=== PATIENT | male | born 1955 | race Caucasian/White ===

== ENCOUNTER 2022-01-11 19:59 | Inpatient (IN) | payer MEDICARE, OTHER, SELFPAY ==
[2022-01-11 20:23] VITALS: BP 189/94; PULSE 64; RESP 16; TEMP 36.9; O2SAT 97; BMI 40.4
[2022-01-11 20:55] LABS: Appearance Urine UA CLEAR; Bilirubin Urine UA NEGATIVE (NEGATIVE); Color Urine UA YELLOW; Glucose Urine UA TRACE g/dL (Negative); Ketones Urine UA NEGATIVE (NEGATIVE); Leukocyte Esterase Urine UA TRACE (NEGATIVE); Nitrite Urine UA NEGATIVE (Negative); Occult Blood Urine UA TRACE-LYSED (Negative); Protein Urine UA TRACE (Negative); Urobilinogen Urine UA 0.2 E.U./dL (0.2)
[2022-01-11 20:57] LABS: Add Manual Diff / Slide Review NO; Basophils Absolute Auto 0 /uL (0-100); Basophils Percent Auto 0.4 % (0-2); Eosinophils Absolute Auto 200 /uL (0-450); Hemoglobin 12.9 g/dL (13.5-17.5); Lymphocytes Absolute Auto 1300 /uL (1100-4500); Lymphocytes Percent Auto 13.8 % (25-40); Mean Corpuscular HGB Conc 34.8 % (30-36); Mean Corpuscular Hemoglobin 26.3 PG (26-34); Mean Corpuscular Volume 75.5 fL (80-100); Monocytes Absolute Auto 600 /uL (0-900); Monocytes Percent Auto 6.6 % (3-14); Neutrophils Absolute Auto 7300 /uL (1500-7000); Neutrophils Percent Auto 77.2 % (50-75); Platelet Count 187 X10^3/uL (150-400); Red Cell Distribution Width 14.1 % (11.6-14.8); White Blood Cell Count 9.5 X10^3/uL (4.5-11.0)
[2022-01-11 21:04] LABS: INR 1.2 (0.9-1.3); Prothrombin Time 13.1 SECONDS (10.1-12.7)
[2022-01-11 21:06] LABS: RBC Urine 0-1/HPF (0-5/HPF); Renal Epithelial Cells Urine 0-1/HPF (0-1/HPF); Squamous Epithelial Cell Urine 1-5 /HPF (0-5/HPF); WBC Urine 1-5/HPF (0-5/HPF)
[2022-01-11 21:07] LABS: Bacteria Urine Occasional (0-1); Granular Casts Urine 0-1/LPF; Hyaline Casts Urine 0-1/LPF
[2022-01-11 21:08] LABS: Culture Indicated Urine Specimen Cultured
[2022-01-11 21:17] LABS: Alanine Aminotransferase 9 IU/L (<50); Albumin 4.5 g/dL (3.5-5.0); Albumin Globulin Ratio 1.4 (1.0-2.8); Alkaline Phosphatase 60 U/L (38-126); Aspartate Aminotransferase 15 IU/L (17-59); BUN Creatinine Ratio 23.4 (6-22); Bilirubin Total 0.6 mg/dL (0.2-1.3); Blood Urea Nitrogen 85 mg/dL (9-20); Calcium 9.2 mg/dL (8.4-10.2); Carbon Dioxide 28 mmol/L (22-32); Chloride 96 mmol/L (98-107); Estimated Glomerular Filt Rate 18 mL/min (>60); Globulin 3.2 g/dL (1.7-4.1); Glucose 265 mg/dL (80-110); HEMOLYSIS < 15 (0-50); Potassium 3.3 mmol/L (3.4-5.1); Sodium 138 mmol/L (137-145); Total Protein 7.7 g/dL (6.3-8.2)
[2022-01-11 21:26] VITALS: PULSE 60; O2SAT 98
--- NOTE | 2022-01-11 21:26 | DI.CT.S_ITS ---
PROCEDURE: CT KIDNEY URETER BLADDER (KUB) INDICATIONS: renal failure TECHNIQUE: Axial sections were acquired from the lung bases to the pubic symphysis. Coronal and sagittal reformats were performed. For radiation dose reduction, the following was used: automated exposure control, adjustment of mA and/or kV according to patient size. COMPARISON: None. FINDINGS: Image quality: Excellent. Lung bases: There is minimal atelectasis. Heart: Heart is normal in size. There is a minimal pericardial effusion inferiorly. URINARY: Right Kidney and Ureter: No hydronephrosis. There are 3-4 nonobstructing right renal stones, with the largest stone located in the superior pole and measuring up to 0.4 cm. There is a smaller adjacent stone measuring approximately 0.2 cm. There is mild nonspecific perinephric stranding. No hydroureter. Left Kidney and Ureter: There are 2 nonobstructing stones within the left kidney, with the largest stone measuring up to 0.5 cm in the inferior pole. There is an exophytic cyst anteriorly. There is mild nonspecific perinephric stranding. No hydronephrosis. No hydroureter. Bladder: Normal wall thickness. No stones. ABDOMEN: Liver: Noncontrast evaluation of the liver demonstrates no discrete mass. Gallbladder: Within normal limits without calcified gallstones. Biliary ducts: No biliary ductal dilatation. Pancreas: Unremarkable. Spleen: The spleen is enlarged, measuring up to 15.9 cm. There is a hypodense lesion within the spleen superiorly measuring up to 1.1 cm which is indeterminate. Adrenal Glands: No adrenal nodules. Stomach and Bowel: Stomach, small bowel loops, and colon are normal in caliber and wall thickness. The appendix is normal in appearance. Peritoneum: No abnormal intraperitoneal fluid. No free air. Ventral Wall: No hernia. Abdominal Nodes: No retroperitoneal or mesenteric adenopathy by size criteria. Vessels: Aorta and inferior vena cava are normal in size. PELVIS: Pelvic Organs: Unremarkable. Pelvic Nodes: No enlarged lymph nodes. Miscellaneous: There is a small fat-containing right inguinal hernia. Bones: Visualized osseous structures demonstrate no suspicious focal lesions. IMPRESSION: 1. Bilateral nephrolithiasis without evidence of obstructive uropathy. 2. Splenomegaly. 3. Small hypodense lesion measuring up to 1.1 cm within the spleen. The findings are nonspecific but statistically not malignant. Differential includes a possible small cyst or hemangioma among other etiologies. Dictated by: Akshat Courtney M.D. on 01/11/2022 at 22:10 Approved by: Akshat Courtney M.D. on 01/11/2022 at 22:16
[2022-01-11 21:27] VITALS: BP 188/97; PULSE 60; O2SAT 97
[2022-01-11 21:30] VITALS: BP 189/92; PULSE 59; O2SAT 97
[2022-01-11] MEDS: SODIUM CHLORIDE 0.9% 1,000 ML 1000 ML IV (21:38)
[2022-01-12] VITALS (25 sets, daily range): BP systolic 159–223; BP diastolic 77–109; PULSE 60–68; RESP 16–18; TEMP 36.6–37.1; O2SAT 92–99; BMI 40.7; BMI 30.9
--- NOTE | 2022-01-12 00:16 | ED.MALEGU ---
HPI - Male Genitourinary General Chief complaint: Urogenital-Male Stated complaint: referred for kidney issues Time Seen by Provider: 01/11/22 20:51 Source: patient Mode of arrival: Ambulatory Limitations: no limitations History of Present Illness HPI Narrative: This is a 66-year-old male with known insulin-dependent diabetes, hypertension and dyslipidemia. Patient states he has felt unwell for several weeks. He had some vomiting a couple weeks ago and had significant nausea several days ago he has been increasingly fatigued and tired and sleeping more. He denies any syncope or lightheadedness. No chest pain or shortness breath. He has noted he has been quite constipated he has not had a bowel movement for several days. He has not appreciate any difficulty with urination or decrease in urine output. He denies any back flank pain. He denies any abdominal pain. Patient primary care physician Dr. Adams ordered outpatient labs was found to have low GFR and elevated BUN and sent to ED. patient denies any known drug allergies. No recent medication changes. He has not been told he has any chronic kidney disease in the past. Related Data Home Medications Medication Instructions Recorded Confirmed clonidine HCl 0.2 mg tablet 0.4 mg PO BID tab 03/01/21 01/11/22 hydrochlorothiazide 25 mg tablet 25 mg PO DAILY 03/01/21 01/11/22 insulin glargine 100 unit/mL (3 55 unit SUBCUT QPM ml 03/01/21 01/11/22 mL) subcutaneous pen (Lantus Solostar U-100 Insulin) insulin lispro 100 unit/mL 20 unit SUBCUT TID ml 03/01/21 01/11/22 subcutaneous pen (Humalog KwikPen (U-100) Insulin) metformin 1,000 mg tablet 1,000 mg PO BID 03/01/21 01/11/22 methylphenidate HCl 36 mg 54 mg PO DAILY 03/01/21 01/11/22 tablet,extended release 24 hr metoprolol tartrate 100 mg tablet 100 mg PO BID 03/01/21 01/11/22 sertraline 100 mg tablet 200 mg PO DAILY tab 03/01/21 01/11/22 trazodone 50 mg tablet 50 mg PO BEDTIME PRN 03/01/21 01/11/22 lovastatin 40 mg tablet 40 mg PO QPM 01/11/22 01/11/22 Allergies Allergy/AdvReac Type Severity Reaction Status Date / Time No Known Drug Allergies Allergy Verified 01/12/22 02:20 Review of Systems Review of Systems ROS Unobtainable: All systems reviewed & are unremarkable except as noted in HPI and below Exam Narrative Exam Narrative: GENERAL: Alert and oriented x three, male in mild distress. HEENT: Head normocephalic, atraumatic, EOMI, pupils reactive, face symmetric, moist mucous membranes NECK: Supple, full range of motion CARDIOVASCULAR: Regular rate and rhythm without murmurs, rubs or gallops. RESPIRATORY: Breath sounds equal bilaterally, no wheezes rales or rhonchi. ABDOMEN: Soft, nontender. Normoactive bowel sounds all 4 quadrants. No guarding or rebound, rigidity, no mass : No CVA tenderness EXTREMITIES: Normal range of motion, no clubbing or edema. Neurovascularly intact NEUROLOGICAL: Cranial nerves II through XII grossly intact. Moving all extremities SKIN: Warm, dry, no petechiae, no rashes or lesions. Initial Vital Signs Initial Vital Signs: Vital Signs Temperature 98.4 F 01/11/22 20:23 Pulse Rate 64 01/11/22 20:23 Respiratory Rate 16 01/11/22 20:23 Blood Pressure 189/94 H 01/11/22 20:23 Pulse Oximetry 97 01/11/22 20:23 Course Orders Ordered: ED Orders 01/11/22 20:41 Complete Blood Count AUTO DIFF Stat Comprehensive Metabolic Panel Stat Prothrombin Time INR Stat Urinalysis and Microscopic Stat Urine Culture Stat 01/11/22 21:26 CT kidney ureter bladder (KUB) Stat 01/12/22 00:42 COVID19 -Nasal RAPID/Pre-Proc Stat Dextrose (Dextrose 50 % In Water 25 Gm/50 Ml Syringe) 25 gm IV PRN PRN PRN Reason: Hypoglycemia Sodium Chloride (Normal Saline 0.9%) 1,000 mls @ 250 mls/hr IV CONT PABLITO Last Admin: 01/12/22 01:14 Dose: 250 mls/hr Documented by: NRHOADS Insulin Human Lispro (Insulin Lispro 100 Unit/Ml 3ml Vial) 0 unit SUBCUT ACHS PABLITO; Protocol Discontinued Medications Clonidine HCl (Clonidine 0.1 Mg Tablet) 0.4 mg PO NOW ONE Stop: 01/12/22 03:56 Sodium Chloride (Normal Saline 0.9%) 1,000 mls @ 1,000 mls/hr IV BOLUS ONE Stop: 01/11/22 22:25 Last Infusion: 01/11/22 23:31 Dose: 0 mls/hr Documented by: Admin: 01/11/22 21:38 Dose: 1,000 mls/hr Documented by: ZEESHAN Ceftriaxone Sodium 2,000 mg/ (Sodium Chloride) 100 mls @ 200 mls/hr IV NOW ONE Stop: 01/12/22 00:49 Last Infusion: 01/12/22 03:28 Dose: 0 mls/hr Documented by: Admin: 01/12/22 01:14 Dose: 200 mls/hr Documented by: ZEESHAN Lidocaine HCl (Lidocaine 2% (Glydo) 6 Ml Gel) 6 ml TOP NOW ONE Stop: 01/12/22 01:18 Last Admin: 01/12/22 02:00 Dose: 6 ml Documented by: ZEESHAN Lidocaine HCl (Lidocaine 2% (Glydo) 6 Ml Gel) 6 ml TOP NOW ONE Stop: 01/12/22 02:19 Last Admin: 01/12/22 03:00 Dose: 6 ml Documented by: ZEESHAN Ondansetron HCl (Ondansetron 4 Mg/2 Ml Inj) 4 mg IV NOW ONE Stop: 01/12/22 03:33 Last Admin: 01/12/22 03:47 Dose: 4 mg Documented by: PRICILA Reevaluation(s) Reevaluation #1: Patient had catheter placed in the department had 600 mL out slowly. Patient has urinated multiple times in the department. Patient has had some increased nausea in the department and was given a dose of Zofran. Consultations Consultation #1: Dr. Coleman, hospitalist. Discussed patient has insulin-dependent diabetes, hypertension dyslipidemia but no known chronic kidney disease has felt unwell for several weeks had labs ordered as an outpatient through primary care and was noted to have a GFR the 17 range with an elevated BUN and sent to the emergency department. Labs, imaging and history reviewed. Patient has received L fluids continuing hydration. Patient has been making urine in the department. He is not hyperkalemic. For admission for acute renal failure, dehydration, with renal stones but no ureterolithiasis on CT imaging. Vital Signs Vital signs: Vital Signs - 8 hr 01/11/22 20:23 01/11/22 21:26 01/11/22 21:27 Temperature 98.4 F Pulse Rate 64 60 60 Respiratory Rate 16 Blood Pressure 189/94 H 188/97 H Pulse Oximetry 97 98 97 01/11/22 21:30 Temperature Pulse Rate 59 L Respiratory Rate Blood Pressure 189/92 H Pulse Oximetry 97 MDM - Male Genitourinary Lab Data Result diagrams: 01/11/22 20:41 01/11/22 20:41 Labs: Lab Results 01/11/22 01/11/22 01/11/22 Range/Units 20:40 20:41 20:41 WBC 9.5 (4.5-11.0) X10^3/uL RBC 4.90 (4.5-5.9) X10^6/uL Hgb 12.9 L (13.5-17.5) g/dL Hct 37.0 L (41-53) % MCV 75.5 L (80-100) fL MCH 26.3 (26-34) PG MCHC 34.8 (30-36) % RDW 14.1 (11.6-14.8) % Plt Count 187 (150-400) X10^3/uL Neut % (Auto) 77.2 H (50-75) % Lymph % (Auto) 13.8 L (25-40) % [place] % (Auto) 6.6 (3-14) % Eos % (Auto) 2.0 (2-4) % Baso % (Auto) 0.4 (0-2) % Neut # (Auto) 7300 H (7873-8575) /uL Lymph # (Auto) 1300 (0751-5812) /uL [place] # (Auto) 600 (0-900) /uL Eos # (Auto) 200 (0-450) /uL Baso # (Auto) 0 (0-100) /uL PT 13.1 H (10.1-12.7) SECONDS INR 1.2 (0.9-1.3) Sodium (137-145) mmol/L Potassium (3.4-5.1) mmol/L Chloride (98-107) mmol/L Carbon Dioxide (22-32) mmol/L BUN (9-20) mg/dL Creatinine (0.66-1.25) mg/dL Estimated GFR (>60) mL/min BUN/Creatinine Ratio (6-22) Glucose (80-110) mg/dL Calcium (8.4-10.2) mg/dL Phosphorus 5.7 H (2.3-3.7) mg/dL Magnesium 2.0 (1.6-2.3) mg/dL Total Bilirubin (0.2-1.3) mg/dL AST (17-59) IU/L ALT (<50) IU/L Alkaline Phosphatase (38-126) U/L Total Protein (6.3-8.2) g/dL Albumin (3.5-5.0) g/dL Globulin (1.7-4.1) g/dL Albumin/Globulin Ratio (1.0-2.8) Urine Color Urine Appearance Urine pH (4.5-8.0) Ur Specific [place] (1.000-1.035) Urine Protein (Negative) Urine Glucose (UA) (Negative) g/dL Urine Ketones (NEGATIVE) Urine Occult Blood (Negative) Urine Nitrate (Negative) Urine Bilirubin (NEGATIVE) Urine Urobilinogen (0.2) E.U./dL Ur Leukocyte Esterase (NEGATIVE) Urine RBC (0-5/HPF) Urine WBC (0-5/HPF) Ur Squamous Epith Cells (0-5/HPF) Ur Renal Epithelial Cell (0-1/HPF) Urine Bacteria (None) Hyaline Casts (None) Granular Casts (None) Ur Culture Indicated? Ur Random Sodium (30-90) mmol/L Urine Creatinine mg/dL 01/11/22 01/11/22 01/11/22 Range/Units 20:41 20:41 20:41 WBC (4.5-11.0) X10^3/uL RBC (4.5-5.9) X10^6/uL Hgb (13.5-17.5) g/dL Hct (41-53) % MCV (80-100) fL MCH (26-34) PG MCHC (30-36) % RDW (11.6-14.8) % Plt Count (150-400) X10^3/uL Neut % (Auto) (50-75) % Lymph % (Auto) (25-40) % [place] % (Auto) (3-14) % Eos % (Auto) (2-4) % Baso % (Auto) (0-2) % Neut # (Auto) (7309-9843) /uL Lymph # (Auto) (7472-2372) /uL [place] # (Auto) (0-900) /uL Eos # (Auto) (0-450) /uL Baso # (Auto) (0-100) /uL PT (10.1-12.7) SECONDS INR (0.9-1.3) Sodium 138 (137-145) mmol/L Potassium 3.3 L (3.4-5.1) mmol/L Chloride 96 L (98-107) mmol/L Carbon Dioxide 28 (22-32) mmol/L BUN 85 H (9-20) mg/dL Creatinine 3.63 H (0.66-1.25) mg/dL Estimated GFR 18 L (>60) mL/min BUN/Creatinine Ratio 23.4 H (6-22) Glucose 265 H (80-110) mg/dL Calcium 9.2 (8.4-10.2) mg/dL Phosphorus (2.3-3.7) mg/dL Magnesium (1.6-2.3) mg/dL Total Bilirubin 0.6 (0.2-1.3) mg/dL AST 15 L (17-59) IU/L ALT 9 (<50) IU/L Alkaline Phosphatase 60 (38-126) U/L Total Protein 7.7 (6.3-8.2) g/dL Albumin 4.5 (3.5-5.0) g/dL Globulin 3.2 (1.7-4.1) g/dL Albumin/Globulin Ratio 1.4 (1.0-2.8) Urine Color Yellow Urine Appearance Clear Urine pH 5.0 (4.5-8.0) Ur Specific [place] 1.020 (1.000-1.035) Urine Protein Trace H (Negative) Urine Glucose (UA) Trace H (Negative) g/dL Urine Ketones Negative (NEGATIVE) Urine Occult Blood Trace-lysed (Negative) Urine Nitrate Negative (Negative) Urine Bilirubin Negative (NEGATIVE) Urine Urobilinogen 0.2 (0.2) E.U./dL Ur Leukocyte Esterase Trace H (NEGATIVE) Urine RBC 0-1/hpf (0-5/HPF) Urine WBC 1-5/hpf (0-5/HPF) Ur Squamous Epith Cells 1-5 /hpf (0-5/HPF) Ur Renal Epithelial Cell 0-1/hpf (0-1/HPF) Urine Bacteria Occasional (0-1) (None) Hyaline Casts 0-1/lpf (None) Granular Casts 0-1/lpf (None) Ur Culture Indicated? Specimen cultured Ur Random Sodium 53 (30-90) mmol/L Urine Creatinine 73.7 mg/dL Imaging Data CT scan - abdomen/pelvis: Radiologist's Impression: [address] [address] [address] Scan Report Signed Patient: BRADLEY BELLA MR#: [id number] : 1955 Acct:[id number] Age/Sex: 66 / M Date of Service: 01/11/22 Loc: ED Accession Number: [id number] ?? Procedure: CT kidney ureter bladder (KUB) Ordering Provider: Kim Ramirez D.O. PROCEDURE:? CT KIDNEY URETER BLADDER (KUB) ? INDICATIONS:? renal failure ? TECHNIQUE:? Axial sections were acquired from the lung bases to the pubic symphysis.? Coronal and sagittal reformats were performed.? For radiation dose reduction, the following was used: ?automated exposure control, adjustment of mA and/or kV according to patient size.? ? COMPARISON:? None. ? FINDINGS:? Image quality:? Excellent.? ? Lung bases:? There is minimal atelectasis.? ? Heart:? Heart is normal in size.? There is a minimal pericardial effusion inferiorly. ? URINARY: Right Kidney and Ureter: ? No hydronephrosis.? There are 3-4 nonobstructing right renal stones, with the largest stone located in the superior pole and measuring up to 0.4 cm.? There is a smaller adjacent stone measuring approximately 0.2 cm.? There is mild nonspecific perinephric stranding.? No hydroureter.? ? Left Kidney and Ureter: ? There are 2 nonobstructing stones within the left kidney, with the largest stone measuring up to 0.5 cm in the inferior pole.? There is an exophytic cyst anteriorly.? There is mild nonspecific perinephric stranding.? No hydronephrosis.? No hydroureter. ? Bladder:? Normal wall thickness. No stones. ? ? ? ABDOMEN: Liver:? Noncontrast evaluation of the liver demonstrates no discrete? mass. Gallbladder:? Within normal limits without calcified gallstones.? ? Biliary ducts:? No biliary ductal dilatation.? ? Pancreas:? Unremarkable.? ? Spleen:? The spleen is enlarged, measuring up to 15.9 cm.? There is a hypodense lesion within the spleen superiorly measuring up to 1.1 cm which is indeterminate. Adrenal Glands:? No adrenal nodules.? ? ? Stomach and Bowel:? Stomach, small bowel loops, and colon are normal in caliber and wall thickness.? The appendix is normal in appearance.? Peritoneum:? No abnormal intraperitoneal fluid.? No free air.? ? Ventral Wall: ? No hernia.? Abdominal Nodes:? No retroperitoneal or mesenteric adenopathy by size criteria.? Vessels:? Aorta and inferior vena cava are normal in size.? ? PELVIS: Pelvic Organs:? Unremarkable.? ? Pelvic Nodes: No enlarged lymph nodes.? Miscellaneous:? There is a small fat-containing right inguinal hernia. ? ? ? Bones:? Visualized osseous structures demonstrate no suspicious focal lesions. IMPRESSION:? ? 1.? Bilateral nephrolithiasis without evidence of obstructive uropathy. ? 2. Splenomegaly. ? 3. Small hypodense lesion measuring up to 1.1 cm within the spleen.? The findings are nonspecific but statistically not malignant.? Differential includes a possible small cyst or hemangioma among other etiologies. ? ? ? Dictated by: Akshat Courtney M.D. on 01/11/2022 at 22:10 ? ? Approved by: Akshat Courtney M.D. on 01/11/2022 at 22:16 MDM Narrative Medical decision making narrative: This is a 66-year-old male with known insulin-dependent diabetes, hypertension dyslipidemia who presents for acute kidney failure. Patient does not have any reported chronic kidney disease but had outpatient labs reflecting elevated creatinine and BUN. Patient states he has been urinating he is not hypokalemic. He does not appear to have any obvious obstructive change on CT imaging but has been quite constipated. Patient did have a Lamar catheter placed and drained 600 out after this was placed but had been urinating regularly to 200 mL in the department. Patient has trace leukocyte esterase but no other signs of infection. Patient is an insulin-dependent diabetic and hypertensive placing him at risk for kidney disease and FENA calculated and is 1.9% reflecting possible intrinsic cause. Patient has not had new changes to his medications he is on metformin and HCTZ which may be related. Patient was given L bolus, IV fluids, Lamar catheter, discussed with hospitalist who kindly accepts. Discharge Plan Departure Patient Disposition: Admitted As Inpatient Clinical Impression: Acute renal failure, Dehydration, Hypokalemia Admit Date/Time: 01/12/22 00:48 Admit Provider: Jacob Coleman
[2022-01-12] MEDS: cefTRIAXone 2,000 MG in SODIUM CHLORIDE 0.9% 100 ML 200 MG IV (01:14)
[2022-01-12] MEDS: SODIUM CHLORIDE 0.9% 1,000 ML 250 ML IV ×2 (01:14→05:40)
[2022-01-12 01:19] LABS: Phosphorous 5.7 mg/dL (2.3-3.7)
[2022-01-12 01:40] LABS: Creatinine Urine Random 73.7 mg/dL; Sodium Urine Random 53 mmol/L (30-90)
[2022-01-12] MEDS: LIDOCAINE 2% (GLYDO) 6 ML GEL TOP ×2 (02:00→03:00)
[2022-01-12] MEDS: ONDANSETRON 4 MG/2 ML INJ IV ×2 (03:47→19:44)
[2022-01-12] MEDS: cloNIDine 0.1 MG TABLET 0.4 MG PO ×2 (04:06→20:07)
[2022-01-12 04:27] LABS: COVID19 -Nasal RAPID Negative (Negative)
[2022-01-12] MEDS: METOPROLOL IR 50 MG TABLET 100 MG PO ×2 (05:20→20:09)
--- NOTE | 2022-01-12 06:10 | P.HP_ITS ---
History of Present Illness History of Present Illness Date Patient Seen: 01/12/22 Time Patient Seen: 06:12 Chief complaint: referred for kidney issues Narrative: This is a 66-year-old male with insulin-dependent diabetes mellitus type 2, hypertension, hyperlipidemia, Crohn's disease and depression who presents with acute renal failure. He has no known prior history of renal disease. He has had nausea, dizziness, increased sleepiness and constipation for 3 weeks so presented to Dr. Adams's office in [place] yesterday. Preliminary testing there reported a creatinine greater than 8.0. He was directed to the emergency department where testing shows a BUN of 85, with creatinine of 3.63 and a potassium of 3.3. The glucose is 265. His urinalysis shows 1-5 WBC along with 0-1 RBC and trace leukocytes. His blood pressure is 182/87. His CT scan shows an enlarged spleen of 15.9 cm with a 1.1 cm hypodense lesion within the spleen which statistically is not malignant. There are 2 stones in the left kidney but no stones in the ureters. He was cathed in the ED obtaining 600 mL but was reported to spontaneously be urinating up to 200 mL at a time after IV fluid was initiated. 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[place] with Perla James -nominal alcohol use Meds Home Medications and Allergies Home Medications Medication Instructions Recorded Confirmed Type clonidine HCl 0.2 mg tablet 0.4 mg PO BID tab 03/01/21 01/11/22 History hydrochlorothiazide 25 mg tablet 25 mg PO DAILY 03/01/21 01/11/22 History insulin glargine 100 unit/mL (3 55 unit SUBCUT QPM ml 03/01/21 01/11/22 History mL) subcutaneous pen (Lantus Solostar U-100 Insulin) insulin lispro 100 unit/mL 20 unit SUBCUT TID ml 03/01/21 01/11/22 History subcutaneous pen (Humalog KwikPen (U-100) Insulin) metformin 1,000 mg tablet 1,000 mg PO BID 03/01/21 01/11/22 History methylphenidate HCl 36 mg 54 mg PO DAILY 03/01/21 01/11/22 History tablet,extended release 24 hr metoprolol tartrate 100 mg tablet 100 mg PO BID 03/01/21 01/11/22 History sertraline 100 mg tablet 200 mg PO DAILY tab 03/01/21 01/11/22 History trazodone 50 mg tablet 50 mg PO BEDTIME PRN 03/01/21 01/11/22 History lovastatin 40 mg tablet 40 mg PO QPM 01/11/22 01/11/22 History Allergies Allergy/AdvReac Type Severity Reaction Status Date / Time No Known Drug Allergies Allergy Verified 01/12/22 02:20 Review of Systems Review of Systems Narrative: Positive for nausea, dizziness, sleepiness, constipation Negative for fevers, chills, sweats, coughing, chest pain, abdominal pain, vomiting, diarrhea, bleeding, rashes, seizures, sore throat, new allergies Exam Vital Signs (past 8 hours): - 01/12/22 01:42 01/12/22 01:43 01/12/22 01:54 Pulse Rate 61 60 Blood Pressure 221/107 H 221/109 H Pulse Oximetry 99 99 97 01/12/22 02:00 01/12/22 02:30 01/12/22 03:00 Pulse Rate 60 61 60 Blood Pressure Pulse Oximetry 98 97 98 01/12/22 03:13 01/12/22 03:30 01/12/22 03:49 Pulse Rate 66 66 66 Blood Pressure 217/100 H Pulse Oximetry 99 98 98 01/12/22 04:00 01/12/22 04:06 01/12/22 04:30 Pulse Rate 68 67 67 Blood Pressure 200/100 H 200/100 H 201/98 H Pulse Oximetry 99 96 01/12/22 05:00 01/12/22 05:30 Pulse Rate 67 62 Blood Pressure 223/102 H 182/87 H Pulse Oximetry 97 95 Oxygen Delivery Method Room Air Narrative Exam Narrative: Alert and oriented x3. Very calm. No apparent distress Pupils are equally round reactive to light and accommodation. Extraocular muscles are intact. Sclerae are pink and nonicteric. Throat looks normal. No lymph nodes are felt head, neck, supraclavicular area There is no thyromegaly JVD is less than 6 cm No carotid bruits are heard Heart is regular rate and rhythm without murmur Lungs are clear to auscultation bilaterally Abdomen is soft, obese, nontender, no organomegaly, bowel sounds are active. Extremities have no ankle edema Skin has no rash or jaundice Neurological exam: Cranial nerves 2-12 test intact There is no tremor Motor function is 5/5 throughout No reported gait or balance abnormality Objective Imaging CT scan - abdomen: Radiologist's impression: PROCEDURE:? CT KIDNEY URETER BLADDER (KUB) ? INDICATIONS:? renal failure ? TECHNIQUE:? Axial sections were acquired from the lung bases to the pubic symphysis.? Coronal and sagittal reformats were performed.? For radiation dose reduction, the following was used: ?automated exposure control, adjustment of mA and/or kV according to patient size.? ? COMPARISON:? None. ? FINDINGS:? Image quality:? Excellent.? ? Lung bases:? There is minimal atelectasis.? ? Heart:? Heart is normal in size.? There is a minimal pericardial effusion inferiorly. ? URINARY: Right Kidney and Ureter: ? No hydronephrosis.? There are 3-4 nonobstructing right renal stones, with the largest stone located in the superior pole and measuring up to 0.4 cm.? There is a smaller adjacent stone measuring approximately 0.2 cm.? There is mild nonspecific perinephric stranding.? No hydroureter.? ? Left Kidney and Ureter: ? There are 2 nonobstructing stones within the left kidney, with the largest stone measuring up to 0.5 cm in the inferior pole.? There is an exophytic cyst anteriorly.? There is mild nonspecific perinephric stranding.? No hydronephrosis.? No hydroureter. ? Bladder:? Normal wall thickness. No stones. ? ? ? ABDOMEN: Liver:? Noncontrast evaluation of the liver demonstrates no discrete? mass. Gallbladder:? Within normal limits without calcified gallstones.? ? Biliary ducts:? No biliary ductal dilatation.? ? Pancreas:? Unremarkable.? ? Spleen:? The spleen is enlarged, measuring up to 15.9 cm.? There is a hypodense lesion within the spleen superiorly measuring up to 1.1 cm which is indeterminate. Adrenal Glands:? No adrenal nodules.? ? ? Stomach and Bowel:? Stomach, small bowel loops, and colon are normal in caliber and wall thickness.? The appendix is normal in appearance.? Peritoneum:? No abnormal intraperitoneal fluid.? No free air.? ? Ventral Wall: ? No hernia.? Abdominal Nodes:? No retroperitoneal or mesenteric adenopathy by size criteria.? Vessels:? Aorta and inferior vena cava are normal in size.? ? PELVIS: Pelvic Organs:? Unremarkable.? ? Pelvic Nodes: No enlarged lymph nodes.? Miscellaneous:? There is a small fat-containing right inguinal hernia. ? ? ? Bones:? Visualized osseous structures demonstrate no suspicious focal lesions. IMPRESSION:? ? 1.? Bilateral nephrolithiasis without evidence of obstructive uropathy. ? 2. Splenomegaly. ? 3. Small hypodense lesion measuring up to 1.1 cm within the spleen.? The findings are nonspecific but statistically not malignant.? Differential includes a possible small cyst or hemangioma among other etiologies. ? ? ? Dictated by: Akshat Courtney M.D. on 01/11/2022 at 22:10 ? ? Approved by: Akshat Courtney M.D. on 01/11/2022 at 22:16 Labs Result Diagrams: 01/11/22 20:41 01/11/22 20:41 Labs: Laboratory Results - last 24 hr 01/11/22 01/11/22 01/11/22 20:40 20:41 20:41 WBC 9.5 RBC 4.90 Hgb 12.9 L Hct 37.0 L MCV 75.5 L MCH 26.3 MCHC 34.8 RDW 14.1 Plt Count 187 Neut % (Auto) 77.2 H Lymph % (Auto) 13.8 L [place] % (Auto) 6.6 Eos % (Auto) 2.0 Baso % (Auto) 0.4 Neut # (Auto) 7300 H Lymph # (Auto) 1300 [place] # (Auto) 600 Eos # (Auto) 200 Baso # (Auto) 0 PT 13.1 H INR 1.2 Sodium Potassium Chloride Carbon Dioxide BUN Creatinine Estimated GFR BUN/Creatinine Ratio Glucose Calcium Phosphorus 5.7 H Magnesium 2.0 Total Bilirubin AST ALT Alkaline Phosphatase Total Protein Albumin Globulin Albumin/Globulin Ratio Urine Color Urine Appearance Urine pH Ur Specific [place] Urine Protein Urine Glucose (UA) Urine Ketones Urine Occult Blood Urine Nitrate Urine Bilirubin Urine Urobilinogen Ur Leukocyte Esterase Urine RBC Urine WBC Ur Squamous Epith Cells Ur Renal Epithelial Cell Urine Bacteria Hyaline Casts Granular Casts Ur Culture Indicated? Ur Random Sodium Urine Creatinine SARS-CoV-2 (PCR) 01/11/22 01/11/22 01/11/22 20:41 20:41 20:41 WBC RBC Hgb Hct MCV MCH MCHC RDW Plt Count Neut % (Auto) Lymph % (Auto) [place] % (Auto) Eos % (Auto) Baso % (Auto) Neut # (Auto) Lymph # (Auto) [place] # (Auto) Eos # (Auto) Baso # (Auto) PT INR Sodium 138 Potassium 3.3 L Chloride 96 L Carbon Dioxide 28 BUN 85 H Creatinine 3.63 H Estimated GFR 18 L BUN/Creatinine Ratio 23.4 H Glucose 265 H Calcium 9.2 Phosphorus Magnesium Total Bilirubin 0.6 AST 15 L ALT 9 Alkaline Phosphatase 60 Total Protein 7.7 Albumin 4.5 Globulin 3.2 Albumin/Globulin Ratio 1.4 Urine Color Yellow Urine Appearance Clear Urine pH 5.0 Ur Specific [place] 1.020 Urine Protein Trace H Urine Glucose (UA) Trace H Urine Ketones Negative Urine Occult Blood Trace-lysed Urine Nitrate Negative Urine Bilirubin Negative Urine Urobilinogen 0.2 Ur Leukocyte Esterase Trace H Urine RBC 0-1/hpf Urine WBC 1-5/hpf Ur Squamous Epith Cells 1-5 /hpf Ur Renal Epithelial Cell 0-1/hpf Urine Bacteria Occasional (0-1) Hyaline Casts 0-1/lpf Granular Casts 0-1/lpf Ur Culture Indicated? Specimen cultured Ur Random Sodium 53 Urine Creatinine 73.7 SARS-CoV-2 (PCR) 01/12/22 04:10 WBC RBC Hgb Hct MCV MCH MCHC RDW Plt Count Neut % (Auto) Lymph % (Auto) [place] % (Auto) Eos % (Auto) Baso % (Auto) Neut # (Auto) Lymph # (Auto) [place] # (Auto) Eos # (Auto) Baso # (Auto) PT INR Sodium Potassium Chloride Carbon Dioxide BUN Creatinine Estimated GFR BUN/Creatinine Ratio Glucose Calcium Phosphorus Magnesium Total Bilirubin AST ALT Alkaline Phosphatase Total Protein Albumin Globulin Albumin/Globulin Ratio Urine Color Urine Appearance Urine pH Ur Specific [place] Urine Protein Urine Glucose (UA) Urine Ketones Urine Occult Blood Urine Nitrate Urine Bilirubin Urine Urobilinogen Ur Leukocyte Esterase Urine RBC Urine WBC Ur Squamous Epith Cells Ur Renal Epithelial Cell Urine Bacteria Hyaline Casts Granular Casts Ur Culture Indicated? Ur Random Sodium Urine Creatinine SARS-CoV-2 (PCR) Negative Assessment & Plan Assessment & Plan narrative: This is a 66-year-old male with insulin-dependent diabetes mellitus type 2, hypertension, hyperlipidemia, Crohn's disease and depression who presents with acute renal failure. He has no known prior history of renal disease. Acute renal failure, present on admission. Active. -outpatient creatinine of greater than 8.0, creatinine of 3.63 on arrival here. -BUN 85 -no reported CKD but likely had occult CKD before this acute episode. -likely multifactorial with long-term diabetes mellitus, hypertension, dehydration, hydrochlorothiazide and metformin contributing. -no definite obstructive uropathy identified although initial catheterization obtained 600 mL in the ED. -continue IV hydration with repeat creatinine this morning and again tomorrow. -expect improvements if not normalization and would likely need Nephrology consultation as an outpatient. Hypokalemia, present on admission. Active. -potassium level 3.3 despite acute renal failure -potassium chloride 40 meq p.o. x1 and follow. Diabetes mellitus type 2, insulin-dependent, present on admission. Active. -continue Humalog t.i.d. and Lantus at HS -stop metformin -monitor blood sugars a.c. and HS. Check A1c. Hypertension, present on admission. Active. -continue metoprolol and clonidine, hold hydrochlorothiazide Splenomegaly with 1.1 cm hypodense lesion, present on admission. Active. -per Radiology this is statistically non malignant with possibilities of a small cyst or hemangioma among other etiologies. Depression, present on admission. Chronic. -continue trazodone and sertraline -holding methylphenidate Hyperlipidemia, present on admission. Chronic. -continue lovastatin Crohn's disease, present on admission. Chronic. -no current treatment or symptoms. His backup decision maker is his Perla Triplett for DVT prevention Time Spent With Patient Critical Care time: I spent a total of [] minutes of critical care time on this patient's care today; this time is exclusive of procedural time.
[2022-01-12] MEDS: POTASSIUM CHLORIDE 20 MEQ TAB 40 MEQ PO (07:33)
[2022-01-12 07:55] LABS: Hemoglobin A1C% w Est Avg Glu 8.3 % (4.0-6.0)
[2022-01-12 08:01] LABS: BUN Creatinine Ratio 22.9 (6-22); Blood Urea Nitrogen 75 mg/dL (9-20); Calcium 8.4 mg/dL (8.4-10.2); Carbon Dioxide 24 mmol/L (22-32); Chloride 105 mmol/L (98-107); Estimated Glomerular Filt Rate 20 mL/min (>60); Glucose 160 mg/dL (80-110); HEMOLYSIS < 15 (0-50); Potassium 3.2 mmol/L (3.4-5.1); Sodium 140 mmol/L (137-145)
[2022-01-12] MEDS: INSULIN LISPRO 100 UNIT/ML 3ML VIAL SUBCUT (08:12)
[2022-01-12] MEDS: INSULIN LISPRO 100 UNIT/ML 3ML VIAL 20 UNIT SUBCUT ×2 (08:13→15:33)
[2022-01-12] MEDS: SERTRALINE 50 MG TABLET 200 MG PO (08:14)
[2022-01-12] MEDS: ENOXAPARIN 30 MG/0.3 ML SYRINGE SUBCUT (08:14)
[2022-01-12] MEDS: SODIUM CHLORIDE 0.9% 1,000 ML 150 ML IV ×2 (09:38→15:30)
[2022-01-12] MEDS: ONDANSETRON 4 MG ODT PO (11:47)
[2022-01-12] MEDS: ATORVASTATIN 20 MG TABLET 10 MG PO (17:28)
[2022-01-12] MEDS: INSULIN GLARGINE 100 UNIT/ML 3ML PEN 55 UNIT SUBCUT (17:29)
[2022-01-13] VITALS (7 sets, daily range): BP systolic 179–189; BP diastolic 68–92; PULSE 55–70; RESP 16–18; TEMP 36.4–36.7; O2SAT 93–97
[2022-01-13] MEDS: TRAZODONE 50 MG TABLET PO (02:27)
[2022-01-13] MEDS: SODIUM CHLORIDE 0.9% 1,000 ML 150 ML IV ×3 (04:37→18:48)
[2022-01-13 07:32] LABS: BUN Creatinine Ratio 18.4 (6-22); Blood Urea Nitrogen 58 mg/dL (9-20); Calcium 8.4 mg/dL (8.4-10.2); Carbon Dioxide 24 mmol/L (22-32); Chloride 109 mmol/L (98-107); Estimated Glomerular Filt Rate 21 mL/min (>60); Glucose 88 mg/dL (80-110); HEMOLYSIS < 15 (0-50); Potassium 3.1 mmol/L (3.4-5.1); Sodium 141 mmol/L (137-145)
[2022-01-13 07:39] LABS: Add Manual Diff / Slide Review NO; Basophils Absolute Auto 0 /uL (0-100); Basophils Percent Auto 0.2 % (0-2); Eosinophils Absolute Auto 200 /uL (0-450); Eosinophils Percent Auto 2.4 % (2-4); Hematocrit 31.2 % (41-53); Hemoglobin 10.9 g/dL (13.5-17.5); Lymphocytes Absolute Auto 900 /uL (1100-4500); Lymphocytes Percent Auto 12.7 % (25-40); Mean Corpuscular HGB Conc 34.9 % (30-36); Mean Corpuscular Hemoglobin 26.3 PG (26-34); Mean Corpuscular Volume 75.4 fL (80-100); Monocytes Absolute Auto 600 /uL (0-900); Monocytes Percent Auto 7.9 % (3-14); Neutrophils Absolute Auto 5500 /uL (1500-7000); Neutrophils Percent Auto 76.8 % (50-75); Platelet Count 139 X10^3/uL (150-400); Red Blood Cell Count 4.14 X10^6/uL (4.5-5.9); Red Cell Distribution Width 13.8 % (11.6-14.8); White Blood Cell Count 7.2 X10^3/uL (4.5-11.0)
[2022-01-13] MEDS: SERTRALINE 50 MG TABLET 200 MG PO (08:32)
[2022-01-13] MEDS: cloNIDine 0.1 MG TABLET 0.4 MG PO ×2 (08:33→20:48)
[2022-01-13] MEDS: POTASSIUM CHLORIDE 20 MEQ TAB 40 MEQ PO ×2 (10:59→18:02)
--- NOTE | 2022-01-13 12:17 | CM.DANOTE ---
Brief DCP Assessment Note Patient is a 66 yo male who was admitted on 01/12/22 for Kidney Issues. Pt has [employer] and [employer] for insurance and his PCP is Dr. Adams. EMR was reviewed. Per MD, pt with a hx of diabetes and Crohns and admitted for acute renal failure and kidney stones. Pt is independent at baseline and no hx of admits to [facility] and per RN is independent in room and no concerns at this time. Per MD, pending pt's kidney function may be stable for d/c home today or tomorrow and no identified barriers to discharge at this time. No bedside assessment completed at this time due to triage needs and no discharge barriers identified. Plan: SW to follow for plan of home when medically stable and any further identified discharge planning needs. JAYME Small
--- NOTE | 2022-01-13 15:27 | P.PN_ITS ---
Subjective Subjective Date Patient Seen: 01/13/22 Time Patient Seen: 08:00 Interval history: Today he feels improved. But he still feels weak. No shortness of breath. No nausea. Exam Vital Signs (past 8 hours): - 01/13/22 07:45 01/13/22 08:33 01/13/22 15:25 Temperature 97.6 F 97.9 F Pulse Rate 58 L 58 L 58 L Respiratory Rate 16 16 Blood Pressure 183/85 H 183/85 H 185/86 H Pulse Oximetry 95 97 Oxygen Delivery Method Room Air Oxygen Flow Rate 0 Narrative Exam Narrative: GEN: no acute distress PULM: clear blungs EXT: warm and well perfused : rey in place draining dark yellow urine Objective Labs Result Diagrams: 01/13/22 07:03 01/13/22 07:03 Labs: Laboratory Results - last 24 hr 01/13/22 01/13/22 07:03 07:03 WBC 7.2 RBC 4.14 L Hgb 10.9 L Hct 31.2 L MCV 75.4 L MCH 26.3 MCHC 34.9 RDW 13.8 Plt Count 139 L Neut % (Auto) 76.8 H Lymph % (Auto) 12.7 L [place] % (Auto) 7.9 Eos % (Auto) 2.4 Baso % (Auto) 0.2 Neut # (Auto) 5500 Lymph # (Auto) 900 L [place] # (Auto) 600 Eos # (Auto) 200 Baso # (Auto) 0 Sodium 141 Potassium 3.1 L Chloride 109 H Carbon Dioxide 24 BUN 58 H Creatinine 3.15 H Estimated GFR 21 L BUN/Creatinine Ratio 18.4 Glucose 88 Calcium 8.4 PFSH Medical History (Updated 01/12/22 @ 06:28 by Jacob Coleman MD) Crohn's disease Depression Diabetes mellitus type 2 in nonobese Hyperlipidemia Hypertension Surgical History (Updated 01/12/22 @ 06:28 by Jacob Coleman MD) History of umbilical hernia repair Family History (Updated 01/12/22 @ 06:29 by Jacob Coleman MD) Father Dementia Mother Alzheimer's dementia Social History household members: spouse Smoking Status: Never smoker alcohol intake: current Assessment & Plan Assessment & Plan narrative: This is a 66-year-old male with insulin-dependent diabetes mellitus type 2, hypertension, hyperlipidemia, Crohn's disease and depression who presents with acute renal failure.? He has no known prior history of renal disease. 1. Acute renal failure -outpatient creatinine of greater than 8.0, creatinine of 3.63 on arrival here.? -BUN 85 -with IV fluid creatinine improved to 3.1 -no reported CKD but possibly had CKD before this -attempt to get outpatient labs -likely multifactorial with long-term diabetes mellitus, hypertension, dehydration, hydrochlorothiazide contributing -no definite obstructive uropathy identified although initial catheterization obtained 600 mL in the ED. - would likely need Nephrology consultation as an outpatient. 2. Hypokalemia -potassium level 3.1 despite acute renal failure -continue to trend 3. Diabetes mellitus type 2, insulin-dependent -continue Humalog and Lantus -stop metformin -monitor blood sugars a.c. and HS -a1c elevated at 8.3 4. Hypertension -continue metoprolol and clonidine, hold hydrochlorothiazide 5. Splenomegaly with 1.1 cm hypodense lesion -per Radiology this is statistically non malignant with possibilities of a small cyst or hemangioma among other etiologies.? 6. Depression -continue trazodone and sertraline -holding methylphenidate 7. Hyperlipidemia -continue lovastatin 8. Crohn's disease? -no current treatment or symptoms. Time Spent With Patient Critical Care time: I spent a total of [] minutes of critical care time on this patient's care today; this time is exclusive of procedural time. Quality VTE Deep Vein Thrombosis/Pulmonary Embolism Present on Admission: No
[2022-01-13] MEDS: ATORVASTATIN 20 MG TABLET 10 MG PO (17:34)
[2022-01-13] MEDS: INSULIN GLARGINE 100 UNIT/ML 3ML PEN 55 UNIT SUBCUT (17:37)
[2022-01-13] MEDS: METOPROLOL IR 50 MG TABLET 100 MG PO (20:48)
[2022-01-13] MEDS: INSULIN LISPRO 100 UNIT/ML 3ML VIAL 20 UNIT SUBCUT (20:57)
[2022-01-14] VITALS (7 sets, daily range): BP systolic 188–206; BP diastolic 93–101; PULSE 54–65; RESP 14–16; TEMP 36.3–36.8; O2SAT 94–96
[2022-01-14] MEDS: TRAZODONE 50 MG TABLET PO ×2 (00:46→23:31)
[2022-01-14] MEDS: SODIUM CHLORIDE 0.9% 1,000 ML 150 ML IV ×4 (01:16→21:33)
[2022-01-14 07:01] LABS: Add Manual Diff / Slide Review NO; Basophils Absolute Auto 0 /uL (0-100); Basophils Percent Auto 0.5 % (0-2); Eosinophils Absolute Auto 300 /uL (0-450); Eosinophils Percent Auto 4.2 % (2-4); Hematocrit 33.5 % (41-53); Hemoglobin 11.8 g/dL (13.5-17.5); Lymphocytes Absolute Auto 1100 /uL (1100-4500); Lymphocytes Percent Auto 15.2 % (25-40); Mean Corpuscular HGB Conc 35.2 % (30-36); Mean Corpuscular Hemoglobin 26.1 PG (26-34); Mean Corpuscular Volume 74.2 fL (80-100); Monocytes Absolute Auto 500 /uL (0-900); Monocytes Percent Auto 7.2 % (3-14); Neutrophils Absolute Auto 5400 /uL (1500-7000); Neutrophils Percent Auto 72.9 % (50-75); Platelet Count 156 X10^3/uL (150-400); Red Blood Cell Count 4.52 X10^6/uL (4.5-5.9); Red Cell Distribution Width 14.3 % (11.6-14.8); White Blood Cell Count 7.4 X10^3/uL (4.5-11.0)
[2022-01-14 07:11] LABS: BUN Creatinine Ratio 17.8 (6-22); Blood Urea Nitrogen 51 mg/dL (9-20); Calcium 8.5 mg/dL (8.4-10.2); Carbon Dioxide 23 mmol/L (22-32); Chloride 109 mmol/L (98-107); Estimated Glomerular Filt Rate 23 mL/min (>60); Glucose 55 mg/dL (80-110); HEMOLYSIS < 15 (0-50); Potassium 3.4 mmol/L (3.4-5.1); Sodium 140 mmol/L (137-145)
[2022-01-14] MEDS: SERTRALINE 50 MG TABLET 200 MG PO (08:21)
[2022-01-14] MEDS: cloNIDine 0.1 MG TABLET 0.4 MG PO ×2 (08:22→20:08)
[2022-01-14] MEDS: ENOXAPARIN 30 MG/0.3 ML SYRINGE SUBCUT (08:22)
[2022-01-14] MEDS: METOPROLOL IR 50 MG TABLET 100 MG PO ×2 (08:22→20:07)
[2022-01-14] MEDS: AMLODIPINE 5 MG TABLET PO (10:42)
[2022-01-14] MEDS: ONDANSETRON 4 MG ODT PO (11:07)
[2022-01-14] MEDS: POTASSIUM CHLORIDE 20 MEQ TAB 40 MEQ PO (15:01)
--- NOTE | 2022-01-14 16:31 | PM.PN.1 ---
Subjective Subjective Date Patient Seen: 01/14/22 Time Patient Seen: 08:00 Interval history: Continue to feel improved. Still fatigued. He had significant elevated blood pressure and also hypoglycemia today. Exam Vital Signs (past 8 hours): - 01/14/22 10:39 01/14/22 12:00 Temperature 98.2 F Pulse Rate 58 L 56 L Respiratory Rate 16 Blood Pressure 188/93 H 191/98 H Pulse Oximetry 94 Oxygen Delivery Method Room Air Oxygen Flow Rate 0 Narrative Exam Narrative: GEN: no acute distress PULM: clear lungs EXT: warm and well perfused : rey in place draining dark yellow urine Objective Labs Result Diagrams: 01/14/22 06:04 01/14/22 06:04 Labs: Laboratory Results - last 24 hr 01/14/22 01/14/22 06:04 06:04 WBC 7.4 RBC 4.52 Hgb 11.8 L Hct 33.5 L MCV 74.2 L MCH 26.1 MCHC 35.2 RDW 14.3 Plt Count 156 Neut % (Auto) 72.9 Lymph % (Auto) 15.2 L [place] % (Auto) 7.2 Eos % (Auto) 4.2 H Baso % (Auto) 0.5 Neut # (Auto) 5400 Lymph # (Auto) 1100 [place] # (Auto) 500 Eos # (Auto) 300 Baso # (Auto) 0 Sodium 140 Potassium 3.4 Chloride 109 H Carbon Dioxide 23 BUN 51 H Creatinine 2.87 H Estimated GFR 23 L BUN/Creatinine Ratio 17.8 Glucose 55 L Calcium 8.5 PFSH Medical History (Updated 01/12/22 @ 06:28 by Jacob Coleman MD) Crohn's disease Depression Diabetes mellitus type 2 in nonobese Hyperlipidemia Hypertension Surgical History (Updated 01/12/22 @ 06:28 by Jacob Coleman MD) History of umbilical hernia repair Family History (Updated 01/12/22 @ 06:29 by Jacob Coleman MD) Father Dementia Mother Alzheimer's dementia Social History household members: spouse Smoking Status: Never smoker alcohol intake: current Assessment & Plan Assessment & Plan narrative: This is a 66-year-old male with insulin-dependent diabetes mellitus type 2, hypertension, hyperlipidemia, Crohn's disease and depression who presents with acute renal failure.? He has no known prior history of renal disease. 1. Acute renal failure -outpatient creatinine of greater than 8.0, creatinine of 3.63 on arrival here.? -BUN 85 -with IV fluid creatinine improved to 2.87 -no reported CKD but possibly had CKD before this -attempt to get outpatient labs -likely multifactorial with long-term diabetes mellitus, hypertension, dehydration, hydrochlorothiazide contributing -no definite obstructive uropathy identified although initial catheterization obtained 600 mL in the ED. - would likely need Nephrology consultation as an outpatient. 2. Hypokalemia -potassium level 3.1 despite acute renal failure -continue to trend 3. Diabetes mellitus type 2, insulin-dependent -continue Humalog and Lantus -stop metformin -monitor blood sugars a.c. and HS -a1c elevated at 8.3 4. Hypertension -continue metoprolol and clonidine, hold hydrochlorothiazide -start amlodipine for continued elevated blood pressure 5. Splenomegaly with 1.1 cm hypodense lesion -per Radiology this is statistically non malignant with possibilities of a small cyst or hemangioma among other etiologies.? 6. Depression -continue trazodone and sertraline -holding methylphenidate 7. Hyperlipidemia -continue lovastatin 8. Crohn's disease? -no current treatment or symptoms. Time Spent With Patient Critical Care time: I spent a total of [] minutes of critical care time on this patient's care today; this time is exclusive of procedural time. Quality VTE Deep Vein Thrombosis/Pulmonary Embolism Present on Admission: No
[2022-01-14] MEDS: INSULIN GLARGINE 100 UNIT/ML 3ML PEN 50 UNIT SUBCUT (18:50)
[2022-01-14] MEDS: ATORVASTATIN 20 MG TABLET 10 MG PO (18:52)
--- NOTE | 2022-01-14 19:32 | PC.NURSE ---
BP high this am 206/100. BGL low at 51. MD informed and adjusted medications. BP continued to be high at midday vitals, per Dr. Francois this is expected until amlodipine can fully kick in. Will continue to monitor closely.
[2022-01-15] MEDS: SODIUM CHLORIDE 0.9% 1,000 ML 150 ML IV ×2 (03:41→11:06)
[2022-01-15 03:42] VITALS: BP 175/85; PULSE 55; RESP 16; TEMP 36.4; O2SAT 93
[2022-01-15 06:08] LABS: Add Manual Diff / Slide Review NO; Basophils Absolute Auto 0 /uL (0-100); Basophils Percent Auto 0.5 % (0-2); Eosinophils Absolute Auto 400 /uL (0-450); Eosinophils Percent Auto 4.2 % (2-4); Hematocrit 35.2 % (41-53); Hemoglobin 12.5 g/dL (13.5-17.5); Lymphocytes Absolute Auto 1900 /uL (1100-4500); Lymphocytes Percent Auto 20.9 % (25-40); Mean Corpuscular HGB Conc 35.5 % (30-36); Mean Corpuscular Hemoglobin 26.4 PG (26-34); Mean Corpuscular Volume 74.3 fL (80-100); Monocytes Absolute Auto 600 /uL (0-900); Monocytes Percent Auto 6.8 % (3-14); Neutrophils Absolute Auto 6200 /uL (1500-7000); Neutrophils Percent Auto 67.6 % (50-75); Platelet Count 171 X10^3/uL (150-400); Red Blood Cell Count 4.74 X10^6/uL (4.5-5.9); Red Cell Distribution Width 14.2 % (11.6-14.8); White Blood Cell Count 9.1 X10^3/uL (4.5-11.0)
[2022-01-15 06:17] LABS: Blood Urea Nitrogen 46 mg/dL (9-20); Calcium 8.8 mg/dL (8.4-10.2); Carbon Dioxide 23 mmol/L (22-32); Chloride 109 mmol/L (98-107); Estimated Glomerular Filt Rate 25 mL/min (>60); Glucose 48 mg/dL (80-110); HEMOLYSIS < 15 (0-50); Potassium 3.4 mmol/L (3.4-5.1); Sodium 141 mmol/L (137-145)
--- NOTE | 2022-01-15 06:59 | PC.NURSE ---
Pt wasn't feeling well this am, stated he was feeling light headache and requested his BS check which was 39, pt was given OJ, turkey sandwich, peanut butter and crackers. BS was checked 30 minutes later and it went up to 102. Pt resting in bed.
[2022-01-15 09:50] VITALS: BP 211/100; PULSE 66; RESP 20; TEMP 36.6; O2SAT 98
[2022-01-15] MEDS: ENOXAPARIN 30 MG/0.3 ML SYRINGE SUBCUT (10:07)
[2022-01-15 10:08] VITALS: BP 194/98; PULSE 66
[2022-01-15] MEDS: cloNIDine 0.1 MG TABLET 0.4 MG PO (10:08)
[2022-01-15] MEDS: AMLODIPINE 5 MG TABLET PO (10:08)
[2022-01-15] MEDS: METOPROLOL IR 50 MG TABLET 100 MG PO (10:10)
[2022-01-15] MEDS: SERTRALINE 50 MG TABLET 200 MG PO (10:11)
[2022-01-15] MEDS: POTASSIUM CHLORIDE 20 MEQ TAB 40 MEQ PO (10:23)
--- NOTE | 2022-01-15 13:31 | P.DS_ITS ---
History of Present Illness History of Present Illness Date Patient Seen: 01/15/22 Time Patient Seen: 13:31 Chief complaint: referred for kidney issues Narrative: History of Present Illness Date Patient Seen: 01/12/22 Time Patient Seen: 06:12 Chief complaint: referred for kidney issues Narrative: This is a 66-year-old male with insulin-dependent diabetes mellitus type 2, hypertension, hyperlipidemia, Crohn's disease and depression who presents with acute renal failure.? He has no known prior history of renal disease.? He has had nausea, dizziness, increased sleepiness and constipation for 3 weeks so presented to Dr. Adams's office in [place] yesterday.? Preliminary testing? there reported a creatinine greater than 8.0.? He was directed to the emergency department where testing shows a BUN of 85, with creatinine of 3.63 and a potassium of 3.3.? The glucose is 265.? His urinalysis shows 1-5 WBC along with 0-1 RBC and trace leukocytes.? His blood pressure is 182/87.? His CT scan shows an enlarged spleen of 15.9 cm with a 1.1 cm hypodense lesion within the spleen which statistically is not malignant.? There are 2 stones in the left kidney but no stones in the ureters.? He was cathed in the ED obtaining 600 mL but was reported to spontaneously be urinating up to 200 mL at a time after IV fluid was initiated. Discharge Providers Provider Date of admission: 01/12/22 00:48 Discharge Date: 01/15/22 Discharge provider: Makayla Barker DO Summary Hospital Course Discharge Diagnosis: ACUTE KIDNEY INJURY LIKELY ON CHRONIC KIDNEY DISEASE STAGE 3-4 . LIKELY RELATED TO NEPHROSCLEROSIS HYPERTENSION PER HISTORY INSULIN DEPENDENT DIABETES TYPE 2 HYPOKALEMIA. REPLACED PRIOR TO DISCHARGE OBESITY. LIFESTYLE CHANGES RECOMMENDED CHRONIC DISEASE ANEMIA.. Hospital Course: THIS IS A VERY PLEASANT 66-YEAR-OLD MALE WITH PAST MEDICAL HISTORY SIGNIFICANT FOR HYPERTENSION AND DIABETES. PATIENT IS ON INSULIN WELL METFORMIN AT HOME. ADMITTED TO THE HOSPITAL WITH WORSENING KIDNEY FUNCTION. ACUTE KIDNEY INJURY WITH SUSPECTED HOWEVER I SUSPECT A COMPONENT OF CHRONIC KIDNEY DISEASE. PATIENT HAS A HISTORY OF HYPERTENSION AND DIABETES. NEPHROSCLEROSIS IS HIGHLY LIKELY. I SUSPECT THIS WAS JUST ON DIAGNOSIS TO POSSIBLY NOT HAVING BEEN SEEN BY HEALTHCARE PROVIDER FOR A BIT PATIENT HAS BEEN MAKING ADEQUATE URINE. HE IS TOLERATING ORAL INTAKE VERY WELL WELL. KIDNEY FUNCTION HAS SIGNIFICANTLY IMPROVED SINCE ADMISSION. TODAY HIS CREATININE IS 2.7. HE WOULD LIKE TO BE DISCHARGED TODAY THIS IS REASONABLE. HE WILL NEED TO FOLLOW UP WITH PRIMARY CARE PHYSICIAN WITHIN 1-2 WEEKS FOR ADDITIONAL WORKUP AND MANAGEMENT INDICATED. MOST IMPORTANTLY PATIENT WILL NEED TO BE REFERRED TO ANY FOLLOWED SHE HAS 4 ADDITIONAL MANAGEMENT/ WORKUP. PATIENT LABS WILL NEED TO BE CHECKED AT LEAST WEEKLY OVER THE NEXT FEW WEEKS. Status at Discharge Cognitive/behavioral status at discharge: oriented Functional status at discharge: independent ambulation Overall status at discharge: patient is back to baseline Time Spent with Patient Time spent: Greater than 30 minutes Exam Vital Signs (past 8 hours): - 01/15/22 09:50 01/15/22 10:08 Temperature 97.8 F Pulse Rate 66 66 Respiratory Rate 20 Blood Pressure 211/100 H 194/98 H Pulse Oximetry 98 Oxygen Delivery Method Room Air Oxygen Flow Rate 0 Narrative Exam Narrative: NO ACUTE DISTRESS. PATIENT IS ALERT ORIENTED X3. VITAL SIGNS STABLE HEAD ATRAUMATIC NORMOCEPHALIC NECK : SUPPLE WITHOUT ADENOPATHY NO CAROTID BRUITS EYE: EOMI, PERRLA, NORMAL CONJUNCTIVA; NO JAUNDICE CHEST: REGULAR RATE. NO RUBS. PMI IS NON DISPLACED. NO MURMURS; NORMAL S1- S2 PULMONARY: DECREASED BS OVER THE BASES. MILD BIBASILAR CRACKLES NOTED; NO INCREASED DULLNESS TO PERCUSSION ABDOMEN: SOFT. NONTENDER. NONDISTENDED. BOWEL SOUNDS ARE PRESENT IN ALL 4 QUADRANTS. NO MASS. EXTREMITIES: NO EDEMA.. NO CYANOSIS CLUBBING NOTED. NEURO: CRANIAL NERVES 2-12 GROSSLY INTACT. NO FOCAL NEUROLOGICAL DEFICIT NOTED. MSK: NORMAL RANGE OF MOTION FOR AGE. NO JOINT EFFUSION. SKIN: NORMAL FOR ETHNICITY; NO ECCHYMOSIS. NO LESION. GOOD TURGOR.; NO RASHES : NORMAL EXTERNAL GENITALIA. PSYCH : APPROPRIATE MOOD AND AFFECT. ALERT AWAKE ORIENTED X3 Objective Labs Result Diagrams: 01/15/22 05:53 01/15/22 05:53 Labs: Laboratory Results - last 24 hr 01/15/22 01/15/22 05:53 05:53 WBC 9.1 RBC 4.74 Hgb 12.5 L Hct 35.2 L MCV 74.3 L MCH 26.4 MCHC 35.5 RDW 14.2 Plt Count 171 Neut % (Auto) 67.6 Lymph % (Auto) 20.9 L [place] % (Auto) 6.8 Eos % (Auto) 4.2 H Baso % (Auto) 0.5 Neut # (Auto) 6200 Lymph # (Auto) 1900 [place] # (Auto) 600 Eos # (Auto) 400 Baso # (Auto) 0 Sodium 141 Potassium 3.4 Chloride 109 H Carbon Dioxide 23 BUN 46 H Creatinine 2.71 H Estimated GFR 25 L BUN/Creatinine Ratio 17.0 Glucose 48 L Calcium 8.8 PFSH Medical History (Updated 01/12/22 @ 06:28 by Jacob Coleman MD) Crohn's disease Depression Diabetes mellitus type 2 in nonobese Hyperlipidemia Hypertension Surgical History (Updated 01/12/22 @ 06:28 by Jacob Coleman MD) History of umbilical hernia repair Family History (Updated 01/12/22 @ 06:29 by Jacob Coleman MD) Father Dementia Mother Alzheimer's dementia Social History household members: spouse Smoking Status: Never smoker alcohol intake: current Discharge Plan Discharge Plan Patient Disposition: Home Nursing Discharge Comment: FOLLOW-UP WITH PRIMARY CARE PHYSICIAN WITHIN 1-2 WEEKS ACTIVITIES TOLERATED RENAL/ CARDIAC DIET Discharge orders & Medications Prescriptions: New atorvastatin [Lipitor] 20 mg Tablet 10 mg PO QPM Qty: 60 0RF amlodipine [Norvasc] 5 mg Tablet 5 mg PO DAILY Qty: 60 0RF insulin lispro [Humalog U-100 Insulin] 100 unit/mL Solution 1 - 12 sliding scale dose SUBCUT AC Qty: 12 0RF Continued Lantus Solostar U-100 Insulin 100 unit/mL (3 mL) insulin pen 55 unit SUBCUT QPM 0RF clonidine HCl 0.2 mg tablet 0.4 mg PO BID 0RF sertraline 100 mg tablet 200 mg PO DAILY 0RF metoprolol tartrate 100 mg tablet 100 mg PO BID 0RF methylphenidate HCl 36 mg tablet extended release 24hr 54 mg PO DAILY 0RF trazodone 50 mg tablet 50 mg PO BEDTIME PRN (Reason: Sleep) 0RF Discontinued lovastatin 40 mg Tablet 40 mg PO QPM 0RF olmesartan 40 mg tablet 40 mg 0RF Label Comments: take 1 tablet by mouth once daily hydrochlorothiazide 25 mg tablet 25 mg PO DAILY 0RF insulin lispro [Humalog KwikPen Insulin] 100 unit/mL insulin pen 20 unit SUBCUT TID 0RF metformin 1,000 mg tablet 1,000 mg PO BID 0RF Diet/Activity/Treatments Diet: Carb-consistent/Diabetic, Low-fat, Low-sodium and Low-cholesterol Activity: TOLERATED Quality VTE Deep Vein Thrombosis/Pulmonary Embolism Present on Admission: No
[2022-01-15 14:43] LABS: Phosphorous 4.4 mg/dL (2.3-3.7)
--- NOTE | 2022-01-15 16:29 | PC.NURSE ---
Pt voided post indwelling cath removal and tolerated well. Provided ischarge paperwork packet per protocol including pt teaching of new medications listed in MAR and renal diet education. Pt and support person verbalized undestanding of instructions. Verified all ordered lines removed and all personal belongings with them at discharge. Vital signs BP: 187/88 and P:63 and advised pt to recheck BP after going home. Pt was d/c via w/c 01/15/2022 @[id number] to POV and support person.
== END 2022-01-15 14:58 | disposition home or self-care (01) | DRG 684 ==
LOC: ED 01-12 00:48 → AC 01-12 00:51
PROVIDERS: Hospitalist; Internal Medicine; Admitting Provider Family Medicine; Emergency Provider Emergency Medicine; Referring Provider Emergency Medicine; Visit Provider Family Medicine
DX: N17.9 Acute kidney failure, unspecified (principal); E87.6 Hypokalemia; I12.9 Hypertensive chronic kidney disease with stage 1 through stage 4 chronic kidney disease, or unspecified chronic kidney disease; N18.4 Chronic kidney disease, stage 4 (severe); E11.22 Type 2 diabetes mellitus with diabetic chronic kidney disease; F32.A Depression, unspecified; E78.5 Hyperlipidemia, unspecified; E86.0 Dehydration; E11.649 Type 2 diabetes mellitus with hypoglycemia without coma; Z79.4 Long term (current) use of insulin; Z79.84 Long term (current) use of oral hypoglycemic drugs; Z20.822 Contact with and (suspected) exposure to COVID-19
CPT/HCPCS: 36415; 51702; 74176; 80048; 80053; 81001; 82570; 82962; 83036; 83735; 84100; 84300; 85025; 85610; 87086; 87635; 96361; 96365; 96366; 96375; 99284; C9803; J0696; J1650; J1815; J2405

== ENCOUNTER 2024-08-19 11:20 | Emergency (ER) | payer MEDICARE, OTHER, SELFPAY ==
[2024-08-19] VITALS (8 sets, daily range): BP systolic 117–149; BP diastolic 62–71; PULSE 60–64; RESP 14–18; TEMP 36.6; O2SAT 92–97; BMI 31.4
--- NOTE | 2024-08-19 12:10 | ED.GENADULT ---
HPI - General Adult General Chief complaint: Weakness Stated complaint: back/joint aches, vomiting, fever, weakness Time Seen by Provider: 08/19/24 11:51 Source: patient Mode of arrival: Family Vehicle History of Present Illness HPI narrative: Patient here with . Complains off and on intermittent mid back pain with chills and nausea and vomiting. No syncope. Has had several episodes since last . No known sick contacts. No chest pain no abdominal pain. Patient denies any history of heart attack strokes or aortic dissection pulmonary embolism or aneurysm. No urinary complaints. Patient has no complaints at this time. Related Data Home Medications Medication Instructions Recorded Confirmed clonidine HCl 0.2 mg tablet 0.4 mg PO BID 03/01/21 01/11/22 insulin glargine 100 unit/mL (3 55 unit SUBCUT QPM 03/01/21 01/11/22 mL) subcutaneous pen (Lantus Solostar U-100 Insulin) methylphenidate HCl 36 mg 54 mg PO DAILY 03/01/21 01/11/22 tablet,extended release 24 hr metoprolol tartrate 100 mg tablet 100 mg PO BID 03/01/21 01/11/22 sertraline 100 mg tablet 200 mg PO DAILY 03/01/21 01/11/22 trazodone 50 mg tablet 50 mg PO BEDTIME PRN Sleep 03/01/21 01/11/22 Previous Rx's Medication Instructions Recorded amlodipine 5 mg tablet (Norvasc) 5 mg PO DAILY #60 tabs 01/15/22 atorvastatin 20 mg tablet (Lipitor) 10 mg (1/2 x 20 mg) PO QPM #60 tabs 01/15/22 insulin lispro 100 unit/mL 1 - 12 sliding scale dose SUBCUT 01/15/22 subcutaneous solution (Humalog AC #12 mL U-100 Insulin) ciprofloxacin HCl 500 mg tablet 500 mg PO BID #14 tabs 08/19/24 (Cipro) losartan 100 mg tablet 100 mg PO DAILY #20 tabs 08/19/24 methylprednisolone 4 mg tablets in See Rx Instructions PO .COMPLEX 08/19/24 a dose pack (Medrol ([place]illy)) #21 ea metronidazole 500 mg tablet 500 mg PO TID #21 tabs 08/19/24 Allergies Allergy/AdvReac Type Severity Reaction Status Date / Time No Known Drug Allergies Allergy Verified 01/12/22 02:20 Review of Systems Review of Systems Narrative: GENERAL: Positive chills, fatigue, malaise, fever, sweats. HEENT: Negative sinus pain, ear pain, sore throat RESPIRATORY: Negative dyspnea, cough CARDIOVASCULAR: Negative chest pain, palpitations GASTROINTESTINAL: Positive nausea, vomiting, negative abdominal pain : Negative dysuria, frequency, hematuria MUSCULOSKELETAL: Negative muscle or bony pain, positive back pain SKIN: Negative rash, skin lesions NEUROLOGIC: Negative weakness, numbness ROS Unobtainable: All systems reviewed & are unremarkable except as noted in HPI and below Patient History Medical History Depression Hypertension Crohn's disease Hyperlipidemia Diabetes mellitus type 2 in nonobese Surgical History History of umbilical hernia repair Family History Father Dementia Mother Alzheimer's dementia Social History household members: spouse Smoking Status: Never smoker alcohol intake: current Smoking Status: Never smoker alcohol intake frequency: a few times a month Exam Narrative Exam Narrative: GENERAL: in no distress, not toxic not dyspneic HEAD: Normocephalic. EYES: Pupils equal round ENT: Mucous membranes moist. NECK: Trachea midline. CARDIOVASCULAR: Regular rate and rhythm RESPIRATORY: Clear to auscultation. Breath sounds equal bilaterally. No wheezes, rales, or rhonchi. GASTROINTESTINAL: Abdomen soft, non-tender EXTREMITIES: No gross deformities. BACK: No flank tenderness. NEURO: AOx4. Clear speech. SKIN: Warm and dry PSYCH: Not anxious, is cooperative Initial Vital Signs Initial Vital Signs: Vital Signs Temperature 97.8 F 08/19/24 11:29 Pulse Rate 60 08/19/24 11:29 Respiratory Rate 18 08/19/24 11:29 Blood Pressure 117/62 08/19/24 11:29 Pulse Oximetry 97 08/19/24 11:29 Oxygen Delivery Method Room Air 08/19/24 11:29 Course Orders Ordered: Discontinued Medications Ciprofloxacin (Ciprofloxacin 250 Mg Tablet) 500 mg PO NOW ONE Stop: 08/19/24 17:41 Last Admin: 08/19/24 17:58 Dose: 500 mg Documented By: SPF Sodium Chloride (Normal Saline 0.9%) 1,000 mls @ 1,000 mls/hr IV BOLUS ONE Stop: 08/19/24 13:06 Last Infusion: 08/19/24 13:23 Dose: Infused Documented By: Admin: 08/19/24 12:17 Dose: 1,000 mls/hr Documented By: Piperacillin Sod/Tazobactam (Sod 4.5 gm/ Sodium Chloride) 100 mls @ 200 mls/hr IV NOW ONE Stop: 08/19/24 16:33 Last Infusion: 08/19/24 17:58 Dose: Infused Documented By: Admin: 08/19/24 17:13 Dose: 200 mls/hr Documented By: Methylprednisolone (Methylprednisolone 125 Mg/2 Ml Vial) 125 mg IV NOW ONE Stop: 08/19/24 17:41 Last Admin: 08/19/24 17:58 Dose: 125 mg Documented By: VANESSA Metronidazole (Metronidazole 500 Mg Tablet) 500 mg PO NOW ONE Stop: 08/19/24 17:41 Last Admin: 08/19/24 17:58 Dose: 500 mg Documented By: VANESSA Vital Signs Vital signs: Vital Signs - 8 hr 08/19/24 11:29 Temperature 97.8 F Pulse Rate 60 Respiratory Rate 18 Blood Pressure 117/62 Pulse Oximetry 97 Oxygen Delivery Method Room Air Medical Decision Making Lab Data 08/19/24 12:08 08/19/24 12:08 Labs: Lab Results 08/19/24 08/19/24 Range/Units 11:40 12:08 WBC 6.8 (4.5-11.0) X10^3/uL RBC 4.37 L (4.5-5.9) X10^6/uL Hgb 11.5 L (13.5-17.5) g/dL Hct 34.7 L (41-53) % MCV 79.3 L (80-100) fL MCH 26.4 (26-34) PG MCHC 33.2 (30-36) % RDW 14.4 (11.6-14.8) % Plt Count 170 (150-400) X10^3/uL Neut % (Auto) 88.8 H (50-75) % Lymph % (Auto) 2.7 L (25-40) % [place] % (Auto) 7.2 (3-14) % Eos % (Auto) 0.9 L (2-4) % Baso % (Auto) 0.4 (0-2) % Neut # (Auto) 6100 (9807-6740) /uL Lymph # (Auto) 200 L (0192-9211) /uL [place] # (Auto) 500 (0-900) /uL Eos # (Auto) 100 (0-450) /uL Baso # (Auto) 0 (0-100) /uL Sodium 136 L (137-145) mmol/L Potassium 3.3 L (3.4-5.1) mmol/L Chloride 105 (98-107) mmol/L Carbon Dioxide 21 L (22-32) mmol/L BUN 34 H (9-20) mg/dL Creatinine 1.85 H (0.66-1.25) mg/dL Estimated GFR 39 L (>60) mL/min BUN/Creatinine Ratio 18.4 (6-22) Glucose 204 H (80-110) mg/dL Calcium 8.6 (8.4-10.2) mg/dL Total Bilirubin 0.6 (0.2-1.3) mg/dL AST 22 (17-59) IU/L ALT 20 (<50) IU/L Alkaline Phosphatase 85 (38-126) U/L Total Creatine Kinase 23 L (55-170) U/L Troponin I < 0.012 (0.01-0.034) ng/mL Total Protein 6.4 (6.3-8.2) g/dL Albumin 3.6 (3.5-5.0) g/dL Globulin 2.8 (1.7-4.1) g/dL Albumin/Globulin Ratio 1.3 (1.0-2.8) Lipase 34 (23-300) U/L SARS-CoV-2 (PCR) Negative (Negative) Influenza A (RT-PCR) Flu a negative (NEGATIVE) Influenza B (RT-PCR) Flu b negative (NEGATIVE) RSV (PCR) Negative (Negative) MDM Narrative Medical decision making narrative: Patient here with . Complains off and on intermittent mid back pain with chills and nausea and vomiting. No syncope. Has had several episodes since last . No known sick contacts. No chest pain no abdominal pain. Patient denies any history of heart attack strokes or aortic dissection pulmonary embolism or aneurysm. No urinary complaints. Patient has no complaints at this time. After history and exam CBC CMP EKG troponin CT angio chest abdomen pelvis normal saline MDM Medical records reviewed: No recent visit for this complaint Differential considered: Includes but not limited to COVID influenza rhino virus, STEMI non-STEMI aortic dissection aortic aneurysm pancreatitis pyelonephritis kidney stone Lab Test results independently reviewed as above. Pertinent findings: WBC 6.8 hemoglobin 11.5 sodium 136 potassium 3.3 BUN 34 creatinine 1.85 GFR 39 negative flu negative COVID negative RSV Independently reviewed EKG sinus bradycardia rate 59 right bundle-branch block no ST elevation or depression Imaging studies independently reviewed: CT angio chest abdomen pelvis [facility] imaging done. Jejunal inflammation. No free air. Possible bladder wall malignancy. No acute process in the chest. Consultations: 5:00 p.m.. Patient is seen by General surgery Dr Womack in the department, he is reviewed CT imaging. Per for discharge home with Cipro Flagyl and steroid. Patient to follow up with GI Services. No admission or surgery indicated at this time. Treatments: Zosyn Cipro Flagyl Solu-Medrol normal saline Re-evaluations: 6:00 p.m.. Updated patient and results. Patient was seen by surgeon Dr. Womack, exam and laboratory studies are reassuring. Pain-free at this time. Agrees with treatment plan. He will call his primary care provider for referral from GI Services. I did review CT imaging results with them. Needs close follow up with primary care for confirmation of findings. Return precautions reviewed and they desire discharge home Discussion: Appropriate for discharge home exam is reassuring. Return precautions reviewed patient and . Not toxic at discharge. Surgeon has seen patient. They desire discharge home Diagnosis: Crohn's flare Discharge Plan Departure Patient Disposition: Home Clinical Impression: Crohn's disease (regional enteritis) Qualifiers: Gastrointestinal tract location: small intestine Digestive disease complication type: without complication Qualified Code(s): K50.00 - Crohn's disease of small intestine without complications Instructions: DI for Crohns Disease Flare Activity Restrictions/Additional Instructions: Your exam is reassuring. Laboratory studies and imaging studies was reviewed by surgeon and he did see you. You need referral to GI services through your family doctor. Antibiotics have been started today as well as steroid. Please continue steroid pack and antibiotics tomorrow. They have been sent to your pharmacy to continue. Return if worse if any questions or concerns. Please do review the CT results with your family doctor for follow up. As we discussed. Prescriptions: New metronidazole 500 mg tablet 500 mg PO TID Qty: 21 0RF ciprofloxacin HCl [Cipro] 500 mg tablet 500 mg PO BID Qty: 14 0RF methylprednisolone [Medrol ([place]illy)] 4 mg tablets,dose pack See Rx Instructions .ROUTE .COMPLEX Qty: 21 0RF Rx Instructions: orally per package directions losartan 100 mg tablet 100 mg PO DAILY Qty: 20 0RF No Action atorvastatin [Lipitor] 20 mg Tablet 10 mg PO QPM Qty: 60 0RF amlodipine [Norvasc] 5 mg Tablet 5 mg PO DAILY Qty: 60 0RF insulin lispro [Humalog U-100 Insulin] 100 unit/mL Solution 1 - 12 sliding scale dose SUBCUT AC Qty: 12 0RF Lantus Solostar U-100 Insulin 100 unit/mL (3 mL) insulin pen 55 unit SUBCUT QPM clonidine HCl 0.2 mg tablet 0.4 mg PO BID sertraline 100 mg tablet 200 mg PO DAILY metoprolol tartrate 100 mg tablet 100 mg PO BID methylphenidate HCl 36 mg tablet extended release 24hr 54 mg PO DAILY trazodone 50 mg tablet 50 mg PO BEDTIME PRN (Reason: Sleep) Stand Alone Forms: Patient Portal/API/Survey
[2024-08-19 12:16] LABS: Add Manual Diff / Slide Review NO; Basophils Absolute Auto 0 /uL (0-100); Basophils Percent Auto 0.4 % (0-2); Eosinophils Absolute Auto 100 /uL (0-450); Eosinophils Percent Auto 0.9 % (2-4); Hematocrit 34.7 % (41-53); Hemoglobin 11.5 g/dL (13.5-17.5); Lymphocytes Absolute Auto 200 /uL (1100-4500); Lymphocytes Percent Auto 2.7 % (25-40); Mean Corpuscular HGB Conc 33.2 % (30-36); Mean Corpuscular Hemoglobin 26.4 PG (26-34); Mean Corpuscular Volume 79.3 fL (80-100); Monocytes Absolute Auto 500 /uL (0-900); Monocytes Percent Auto 7.2 % (3-14); Neutrophils Absolute Auto 6100 /uL (1500-7000); Neutrophils Percent Auto 88.8 % (50-75); Platelet Count 170 X10^3/uL (150-400); Red Blood Cell Count 4.37 X10^6/uL (4.5-5.9); Red Cell Distribution Width 14.4 % (11.6-14.8); White Blood Cell Count 6.8 X10^3/uL (4.5-11.0)
[2024-08-19] MEDS: SODIUM CHLORIDE 0.9% 1,000 ML 1000 ML IV (12:17)
--- NOTE | 2024-08-19 12:22 | EKG_ITS ---
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
--- NOTE | 2024-08-19 12:23 | EKG_ITS ---
[address] [address] Test Date: 2024-08-19 Pat Name: Geoff James Department: 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
[2024-08-19 12:24] LABS: Influenza A - CEPHEID Flu A NEGATIVE (NEGATIVE); Influenza B - CEPHEID Flu B NEGATIVE (NEGATIVE); Respiratory Syncytial Virus Negative (Negative)
[2024-08-19 12:25] LABS: COVID-19 CEPHEID 4-PLEX PCR Negative (Negative)
[2024-08-19 12:32] LABS: Alanine Aminotransferase 20 IU/L (<50); Albumin 3.6 g/dL (3.5-5.0); Albumin Globulin Ratio 1.3 (1.0-2.8); Alkaline Phosphatase 85 U/L (38-126); Aspartate Aminotransferase 22 IU/L (17-59); BUN Creatinine Ratio 18.4 (6-22); Bilirubin Total 0.6 mg/dL (0.2-1.3); Blood Urea Nitrogen 34 mg/dL (9-20); Calcium 8.6 mg/dL (8.4-10.2); Carbon Dioxide 21 mmol/L (22-32); Chloride 105 mmol/L (98-107); Creatine Kinase 23 U/L (55-170); Estimated Glomerular Filt Rate 39 mL/min (>60); Globulin 2.8 g/dL (1.7-4.1); Glucose 204 mg/dL (80-110); HEMOLYSIS < 15 (0-50); Lipase 34 U/L (23-300); Potassium 3.3 mmol/L (3.4-5.1); Sodium 136 mmol/L (137-145); Total Protein 6.4 g/dL (6.3-8.2)
[2024-08-19 12:44] LABS: Troponin I < 0.012 ng/mL (0.01-0.034)
[2024-08-19] MEDS: PIPERACILLIN/TAZO 4.5 GM in SODIUM CHLORIDE 0.9% 100 ML IV (17:13)
--- NOTE | 2024-08-19 17:25 | PM.CN ---
History of Present Illness Consult details Date Patient Seen: 08/19/24 Time Patient Seen: 17:26 Chief complaint: back/joint aches, vomiting, fever, weakness Reason for consult: jejunal inflamation Requesting provider: Adryan Newsome Narrative: This is a 68-year-old white male with a 30 year history of inflammatory bowel disease not currently followed by a garden center manager for over 4 years, who presents with 1 week of vague back pain. He had some associated nausea intermittently over that week, and intermittent chills, presents now to the emergency department. CT scan shows some inflammation with a contained perforation of the jejunum. He states that 30 years ago when he was 1st diagnosed with what was thought was to be ulcerative colitis he was started on high-dose steroids for prolonged period of time which he stopped because of skin thinning. Several years ago he had a follow-up colonoscopy which showed skip lesions and was rediagnosed as a Crohn's patient. He does not take any maintenance medication. He liked his garden center manager, but did not like the institution which he practiced. Meds Home Medications and Allergies Home Medications Medication Instructions Recorded Confirmed Type clonidine HCl 0.2 mg tablet 0.4 mg PO BID 03/01/21 01/11/22 History insulin glargine 100 unit/mL (3 55 unit SUBCUT QPM 03/01/21 01/11/22 History mL) subcutaneous pen (Lantus Solostar U-100 Insulin) methylphenidate HCl 36 mg 54 mg PO DAILY 03/01/21 01/11/22 History tablet,extended release 24 hr metoprolol tartrate 100 mg tablet 100 mg PO BID 03/01/21 01/11/22 History sertraline 100 mg tablet 200 mg PO DAILY 03/01/21 01/11/22 History trazodone 50 mg tablet 50 mg PO BEDTIME PRN Sleep 03/01/21 01/11/22 History amlodipine 5 mg tablet (Norvasc) 5 mg PO DAILY #60 tabs 01/15/22 Rx atorvastatin 20 mg tablet (Lipitor) 10 mg (1/2 x 20 mg) PO QPM #60 tabs 01/15/22 Rx insulin lispro 100 unit/mL 1 - 12 sliding scale dose SUBCUT 01/15/22 Rx subcutaneous solution (Humalog AC #12 mL U-100 Insulin) Allergies Allergy/AdvReac Type Severity Reaction Status Date / Time No Known Drug Allergies Allergy Verified 01/12/22 02:20 Review of Systems Review of Systems ROS: Yes All systems reviewed with the patient and are negative except as otherwise documented Exam Vital Signs (past 8 hours): - 08/19/24 11:29 Temperature 97.8 F Pulse Rate 60 Respiratory Rate 18 Blood Pressure 117/62 Pulse Oximetry 97 Oxygen Delivery Method Room Air Oxygen Delivery Method Room Air Narrative Exam Narrative: Gen: NAD, sitting comfortably in bed, appears well HEENT: Sclera are anicteric, head is normocephalic and atraumatic, trachea is midline. CV: RRR, no JVD Resp: clear to auscultation bilaterally, equal chest wall movement bilaterally Abd: soft, nontender, normoactive bowel sounds. I am able to press deeply in the area of concern on the CT scan without any pain reproduced, no rebound or guarding. Ext: no edema, full range of motion Neuro: Cranial nerves II-XII grossly intact, no focal deficits Skin: No erythema or ecchymosis Objective Labs 08/19/24 12:08 08/19/24 12:08 Labs: Laboratory Results - last 24 hr 08/19/24 08/19/24 11:40 12:08 WBC 6.8 RBC 4.37 L Hgb 11.5 L Hct 34.7 L MCV 79.3 L MCH 26.4 MCHC 33.2 RDW 14.4 Plt Count 170 Neut % (Auto) 88.8 H Lymph % (Auto) 2.7 L [place] % (Auto) 7.2 Eos % (Auto) 0.9 L Baso % (Auto) 0.4 Neut # (Auto) 6100 Lymph # (Auto) 200 L [place] # (Auto) 500 Eos # (Auto) 100 Baso # (Auto) 0 Sodium 136 L Potassium 3.3 L Chloride 105 Carbon Dioxide 21 L BUN 34 H Creatinine 1.85 H Estimated GFR 39 L BUN/Creatinine Ratio 18.4 Glucose 204 H Calcium 8.6 Total Bilirubin 0.6 AST 22 ALT 20 Alkaline Phosphatase 85 Total Creatine Kinase 23 L Troponin I < 0.012 Total Protein 6.4 Albumin 3.6 Globulin 2.8 Albumin/Globulin Ratio 1.3 Lipase 34 SARS-CoV-2 (PCR) Negative Influenza A (RT-PCR) Flu a negative Influenza B (RT-PCR) Flu b negative RSV (PCR) Negative PFSH Medical History Depression Hypertension Crohn's disease Hyperlipidemia Diabetes mellitus type 2 in nonobese Surgical History History of umbilical hernia repair Family History Father Dementia Mother Alzheimer's dementia Social History household members: spouse Tobacco & Substance Use Smoking Status: Never smoker alcohol intake: current Assessment & Plan Assessment and plan (1) Crohn's disease of jejunum with abscess: Status: Acute Assessment & Plan narrative: Patient currently feels well. He has not tachycardic. He has a normal white count. I suggest he reestablished with a garden center manager. In the meantime, we will recommend Cipro and Flagyl along with a Medrol Dosepak. Time-Based Coding :: [TOTAL MINUTES] spent with patient and on the chart (including review of chart, obtaining history, exam, reviewing outside data, placing orders, documenting exam and treatment plan, and counseling patient) on [DATE]. PROFEE Charge Codes Inpatient or Observation consultation: 24924
[2024-08-19] MEDS: metroNIDAZOLE 500 MG TABLET PO (17:58)
[2024-08-19] MEDS: CIPROFLOXACIN 250 MG TABLET 500 MG PO (17:58)
[2024-08-19] MEDS: methylPREDNISolone 125 MG/2 ML VIAL IV (17:58)
== END 2024-08-19 18:22 | disposition home or self-care (01) ==
PROVIDERS: Emergency Provider Emergency Medicine
DX: K50.014 Crohn's disease of small intestine with abscess (principal); R00.1 Bradycardia, unspecified; I45.10 Unspecified right bundle-branch block
CPT/HCPCS: 0241U; 36415; 80053; 82550; 83690; 84484; 85025; 93005; 96361; 96365; 96375; 99284; J2543; J2919

== ENCOUNTER → 2024-09-16 13:41 | Outpatient (CLI) | payer MEDICARE, OTHER, SELFPAY ==
--- NOTE | 2024-09-16 | DI.CT.S_ITS ---
PROCEDURE: CT ABDOMEN PELVIS W CON INDICATIONS: BACKACHE, HX BOWEL PERFORATION TECHNIQUE: After the administration of intravenous contrast, axial sections acquired from the lung bases to the pubic symphysis. Coronal and sagittal reformats were performed. For radiation dose reduction, the following was used: automated exposure control, adjustment of mA and/or kV according to patient size. COMPARISON: [facility], CT, CT KIDNEY URETER BLADDER (KUB), 01/11/2022, 21:31. [facility], CT, CT ANGIO CHEST ABDOMEN PELVIS, 08/19/2024, 15:19. FINDINGS: Image quality: Diagnostic. Lower Chest: No significant findings. ABDOMEN: Liver: No solid mass. Gallbladder: No radiopaque gallstones or wall thickening. Biliary ducts: No biliary dilation. Pancreas: No ductal dilation. Spleen: There is splenomegaly. Possible tiny cyst is noted in central portion of spleen measures 6 millimeter in size series 2, image 39. Adrenal Glands: No adrenal nodules. Kidneys and Ureters: Multiple bilateral non-obstructing renal stones are seen. No hydronephrosis. No solid appearing renal lesion. Simple appearing bilateral renal cysts are seen measures up to 4.6 x 4.1 cm in size in upper pole left kidney. No hydroureter. Stomach and Bowel: There is no bowel obstruction. Oral contrast is seen in distal small bowel loop. No oral contrast extravasation is seen. No significant bowel wall thickening or mesenteric fat stranding. No abscess collection. Peritoneum: No abnormal intraperitoneal fluid. No free air is seen on the current study. Ventral Wall: No significant ventral hernia. Abdominal Nodes: No retroperitoneal or mesenteric adenopathy by size criteria. Vessels: Aorta and inferior vena cava are normal in size. PELVIS: Pelvic Organs: Unremarkable. Bladder: Diffuse bladder wall thickening with lobulated appearance of left lateral bladder wall concerning for bladder mass unchanged from prior study. Calcified bladder stones are noted in dependent portion. Pelvic Nodes: No enlarged lymph nodes. Miscellaneous: No inguinal hernias are seen. Bones: No aggressive osseous abnormality. No acute vertebral body compression fracture. Degenerative disc disease throughout lumbar spine is seen. IMPRESSION: 1. No evidence of bowel obstruction or abnormal bowel wall thickening. No oral contrast extravasation. No peritoneal free fluid or free air. 2. Stable appearance of bilateral nonobstructing renal calculi and simple appearing renal cysts. No hydronephrosis or hydroureter. 3. Diffuse bladder wall thickening with suggestion of possible left lateral bladder wall mass unchanged from prior study. Calcified bladder stones in its dependent portion. 4. Splenomegaly unchanged from prior study. Dictated by: Stephan Min M.D. on 09/16/2024 at 15:03 Approved by: Stephan Min M.D. on 09/16/2024 at 15:17
== END ==
PROVIDERS: PCP Family Medicine; Referring Provider Family Medicine; Visit Provider Family Medicine
DX: K63.1 Perforation of intestine (nontraumatic) (principal); M54.50 Low back pain, unspecified; K50.918 Crohn's disease, unspecified, with other complication; R16.1 Splenomegaly, not elsewhere classified; N20.0 Calculus of kidney; N28.1 Cyst of kidney, acquired; N21.0 Calculus in bladder
CPT/HCPCS: 74177; Q9967